=== PATIENT | male | born 1995 | race Caucasian/White ===

== ENCOUNTER 2017-04-29 07:39 | Day surgery (SDC) | payer BC ==
[2017-04-29] VITALS (9 sets, daily range): BP systolic 103–137; BP diastolic 57–86; Ht 188 cm; Wt 77.3 kg
[~2017-04-29] VITALS: Ht 188 cm; Wt 77.3 kg
[2017-04-29 08:04] LABS: BASOPHILS 0.1 % (0-2); EOSINOPHILS 0 % (0-7); HEMOGLOBIN 16.4 g/dL (13.5-17.5); IMMATURE GRANULOCYTES 0.3 % (0-5); LYMPHOCYTES 5.6 % (15-50); MCH 29.8 pg (26.0-34.0); MCHC 34.9 g/dL (31.0-37.0); MCV 85.3 fL (80.0-100.0); MONOCYTES 9.6 % (2-11); NEUTROPHILS 84.4 % (40-80); PLATELET COUNT 203 10x3/uL (130-400); RBC 5.51 10x6/uL (4.20-6.10); RDW 12.3 % (11.5-14.5); WBC 18.9 10x3/uL (4.8-10.8)
[2017-04-29 08:09] LABS: APPEARANCE CLEAR (CLEAR); BILIRUBIN NEGATIVE (NEGATIVE); COLOR YELLOW (YELLOW); GLUCOSE NEGATIVE (NEGATIVE); KETONE MODERATE mg/dL (NEGATIVE); LEUKOCYTE ESTERASE NEGATIVE (NEGATIVE); NITRITE NEGATIVE (NEGATIVE); PROTEIN TRACE mg/dL (NEGATIVE); UROBILINOGEN NORMAL (NORMAL)
[2017-04-29 08:12] LABS: BACTERIA FEW /hpf (NONE SEEN); EPITHELIAL CELLS 0-5 /hpf (0-5); MUCUS <1+ /lpf (NONE SEEN); RED CELLS - URINE 0-5 /hpf (0-5); WHITE CELLS - URINE 0-5 /hpf (0-5)
[2017-04-29 09:39] LABS: ALBUMIN 4.3 g/dL (3.4-5.0); ALKALINE PHOSPHATASE 81 U/L (46-116); ALT (SGPT) 17 U/L (10-68); BILIRUBIN - TOTAL 1.15 mg/dL (0.2-1.3); CALC OSMOLALITY 272 mosm/kg (275-300); CALCIUM 9.3 mg/dL (8.5-10.1); CARBON DIOXIDE 29.6 mmol/L (21.0-32.0); CHLORIDE - SERUM 101 mmol/L (98-107); CREATININE - SERUM 1.3 mg/dL (0.6-1.3); GLUCOSE 104 mg/dL (74-106); POTASSIUM - SERUM 4.3 mmol/L (3.5-5.1); PROTEIN - SERUM 7.9 g/dL (6.4-8.2); SODIUM 137 mmol/L (136-145); UREA NITROGEN 10 mg/dL (7-18); eGFR NON AFRICAN AMERICAN 75 mL/min (90-120)
[2017-04-29 09:56] LABS: APTT 28.8 SECONDS (22.8-39.4); INR 1.13 (0.85-1.17); PROTIME 14.4 SECONDS (11.6-15.0)
[2017-04-29] MEDS ORDERED: HYDROCODON-ACE1 EAC7 PO (12:44)
[2017-04-29] MEDS ORDERED: LEVAQUIN500 MG PO ×2 (12:44→12:46)
--- NOTE | 2017-04-29 13:45 | NUR ---
PATIENT TO ROOM AT THIS TIME WITH VS STABLE. NO COMPLAINTS AT THIS TIME. IV INTACT. ABDOMEN WITH STERI STRIPS OVER LAP SITES X 3 CDI. FAMILY AT BEDSIDE. CALL LIGHT WITHIN REACH.
--- NOTE | 2017-04-29 14:00 | NUR ---
PATIENT TOLERATED REGULAR DIET WITH NO PROBLEMS. NO NAUSEA OR VOMITTING. CALL LIGHT WITHIN REACH.
--- NOTE | 2017-04-29 14:30 | NUR ---
PATIENT UP TO BR WITH ASSIST. FAMILY AT SIDE. CALL LIGHT WITHIN REACH.
--- NOTE | 2017-04-29 16:48 | NUR ---
PATIENT RECIEVED DC INSTRUCTIONS. VERBALIZED UNDERSTANDING. NO QUESTIONS AT THIS TIME. IV REMOVED WITH CATH TIP INTACT. FAMILY AT BEDSIDE. CALL LIGHT WITHIN REACH.
--- NOTE | 2017-04-29 16:53 | NUR ---
INITIAL RESPIRATORY ASSESSMENT PROVIDED PT APPEARS TO BE IN NO RESPIRATORY DISTRESS AT THIS TIME SPO2 WITHIN PARAMETERS AND EVUAL TREATMENT GIVEN WITH NO ADVERSE REACTIONS
== END 2017-04-29 17:14 | disposition home or self-care (01) ==
LOC: D.ER 07:39 → D.SDCHOLD 07:39 → D.OPS 07:39 → EDSTATUS 10:09 → D.SDCHOLD 10:11 → D.MS 10:20 → D.OPS 17:14
PROVIDERS: Family Medicine
DX: K35.3 Acute appendicitis with localized peritonitis (principal)